=== PATIENT | male | born 1990 | race Caucasian/White ===

== ENCOUNTER 2016-08-10 20:13 | Emergency (ER) | payer MEDICAID ==
[~2016-08-10] VITALS: Ht 180.3 cm; Wt 72.6 kg
[~2016-08-10 20:13] MED LIST: LISD20CA
[2016-08-10 21:02] LABS: Basophils # (auto) 0.1 uL; Basophils % (auto) 1.2 % (0.0-2.0); Eosinophils # (auto) 0.3 uL; Eosinophils % (auto) 2.2 % (0.0-7.0); Hematocrit 48.2 % (41.0-53.0); Hemoglobin 15.9 g/dL (13.5-17.5); Lymphocytes # (auto) 3.4 uL; Lymphocytes % (auto) 29.6 % (10.0-50.0); Mean Corpuscular Hemoglobin 29.3 pg (28.0-32.0); Mean Corpuscular Volume 88.8 fL (80.0-100.0); Mean Platelet Volume 7.6 fL (7.4-10.4); Monocytes # (auto) 0.6 uL; Monocytes % (auto) 5.5 % (0.0-12.0); Neutrophils # (auto) 7.1 uL; Neutrophils % (auto) 61.5 % (37.0-80.0); Platelet Count (auto) 287 10^3/uL (140-450); Red Cell Distribution Width 12.7 % (11.6-16.0); White Blood Cell 11.6 10^3/uL (4.4-10.8)
[2016-08-10 21:52] LABS: BUN/Creatinine Ratio 11.2; Calcium 8.5 mg/dL (8.5-10.1); Potassium 3.5 mmol/L (3.5-5.1)
[2016-08-10 21:55] LABS: Bilirubin, Total 0.2 mg/dL (0.2-1.0); Total Protein 7.6 g/dL (6.4-8.2)
[2016-08-11] MEDS ORDERED: KETOROLAC TROMETH 30 MG/ML 1ML VIAL IV ONE (07:30)
[2016-08-11 07:46] VITALS: BP 109/64
== END 2016-08-11 08:45 | disposition home or self-care (01) ==
LOC: EDBD 20:13 → ER 20:16
DX: R07.89 Other chest pain (principal); F17.210 Nicotine dependence, cigarettes, uncomplicated; F12.10 Cannabis abuse, uncomplicated
CPT/HCPCS: 36415; 71020; 80053; 84484; 85025; 93005; 94761; 96374; 99285; J1885

== ENCOUNTER 2016-11-16 12:00 | Emergency (ER) | payer MEDICAID ==
[~2016-11-16] VITALS: Ht 175.3 cm; Wt 66.2 kg
[2016-11-16] MEDS ORDERED: ASPirin 81 mg TAB PO ONE (12:30)
[2016-11-16 13:02] LABS: Basophils # (auto) 0 uL; Basophils % (auto) 0.4 % (0.0-2.0); Eosinophils # (auto) 0 uL; Eosinophils % (auto) 0.6 % (0.0-7.0); Hemoglobin 16.3 g/dL (13.5-17.5); Lymphocytes # (auto) 1.7 uL; Lymphocytes % (auto) 23.7 % (10.0-50.0); Mean Corpuscular Hgb Conc. 34.6 g/dL (32.0-36.0); Mean Corpuscular Volume 86.7 fL (80.0-100.0); Mean Platelet Volume 7.3 fL (7.4-10.4); Monocytes # (auto) 0.6 uL; Monocytes % (auto) 8.8 % (0.0-12.0); Neutrophils # (auto) 4.7 uL; Neutrophils % (auto) 66.5 % (37.0-80.0); Platelet Count (auto) 354 10^3/uL (140-450); Red Cell Distribution Width 13.1 % (11.6-16.0); White Blood Cell 7.1 10^3/uL (4.4-10.8)
[2016-11-16 13:12] LABS: Albumin 3.8 g/dL (3.4-5.0); Alkaline Phosphatase 100 U/L (45-117); Anion Gap 6 (5-15); Aspartate Aminotransferase 16 U/L (15-37); Bilirubin, Total 0.4 mg/dL (0.2-1.0); Blood Urea Nitrogen 7 mg/dL (7-18); Calcium 8.9 mg/dL (8.5-10.1); Carbon Dioxide 29 mmol/L (21-32); Chloride 104 mmol/L (98-107); GFR African American 139 mL/min; GFR Non-African American 115 mL/min; Glucose 92 mg/dL (74-106); Magnesium 2.5 mg/dL (1.6-2.6); Potassium 3.9 mmol/L (3.5-5.1); Sodium 139 mmol/L (136-145)
[2016-11-16 13:19] LABS: Urine Bilirubin Negative (Negative); Urine Blood TRACE /uL (Negative); Urine Color Yellow (Yellow); Urine Glucose Normal (Normal); Urine Ketone Negative (Negative); Urine Nitrite Negative (Negative); Urine RBC 5 /hpf (0 - 3); Urine Urobilinogen Normal (Negative)
[2016-11-16 14:19] VITALS: BP 124/72
== END 2016-11-16 12:35 | disposition home or self-care (01) ==
LOC: ER 12:00
DX: R07.89 Other chest pain (principal); F17.210 Nicotine dependence, cigarettes, uncomplicated; F12.10 Cannabis abuse, uncomplicated
CPT/HCPCS: 36415; 71010; 80053; 81001; 83735; 84484; 85025; 94761

== ENCOUNTER 2018-04-10 15:33 | Emergency (ER) | payer MEDICAID ==
[~2018-04-10] VITALS: Ht 175.3 cm; Wt 55.8 kg
[2018-04-10 15:50] VITALS: BP 109/63
[2018-04-10 16:58] LABS: Amphetamine Screen, Urine POSITIVE (NEGATIVE); Barbiturate Scree,Urine NEGATIVE (NEGATIVE); Cannabinoid Screen, Urine POSITIVE (NEGATIVE)
[2018-04-10 17:05] LABS: Alcohol, Urine < 3.0 mg/dL (0-5); Benzodiazephine Screen, Urine NEGATIVE (NEGATIVE); Cocaine Screen, Urine NEGATIVE (NEGATIVE); Opiate Scree,Urine NEGATIVE (NEGATIVE); Phencyclidine Screen, Urine NEGATIVE (NEGATIVE)
[2018-04-10] MEDS ORDERED: cefTRIAXone SOD 1,000 MG VL IM ONE (17:15)
== END 2018-04-10 17:35 | disposition home or self-care (01) ==
LOC: ER 15:38
DX: L98.8 Other specified disorders of the skin and subcutaneous tissue (principal); F17.210 Nicotine dependence, cigarettes, uncomplicated
CPT/HCPCS: 80307; 96372; 99283; J0696

== ENCOUNTER 2018-04-18 15:45 | Emergency (ER) | payer MEDICAID ==
[~2018-04-18] VITALS: Ht 167.6 cm; Wt 68.0 kg
[2018-04-18 16:16] VITALS: BP 134/80
[2018-04-18 16:54] LABS: Basophils # (auto) 0.1 uL; Basophils % (auto) 0.6 % (0.0-2.0); Eosinophils # (auto) 0.1 uL; Eosinophils % (auto) 0.5 % (0.0-7.0); Hematocrit 44.6 % (41.0-53.0); Lymphocytes # (auto) 1.9 uL; Lymphocytes % (auto) 15.6 % (10.0-50.0); Mean Corpuscular Hemoglobin 29.9 pg (28.0-32.0); Mean Corpuscular Hgb Conc. 33.5 g/dL (32.0-36.0); Monocytes # (auto) 0.6 uL; Monocytes % (auto) 4.8 % (0.0-12.0); Neutrophils # (auto) 9.3 uL; Neutrophils % (auto) 78.5 % (37.0-80.0); Nucleated Red Blood Cells % 0.1 %; Platelet Count (auto) 309 10^3/uL (140-450); Red Blood Cells 5.01 10^6/uL (4.5-5.90); Red Cell Distribution Width 12.9 % (11.8-14.3); White Blood Cell 11.9 10^3/uL (4.4-10.8)
[2018-04-18] MEDS ORDERED: SODIUM CHLORIDE 0.9% 1,000 ML IV ONE (17:15)
[2018-04-18 17:20] LABS: Alanine Aminotransferase 31 U/L (16-61); Albumin 3.7 g/dL (3.4-5.0); Anion Gap 7 (5-15); Aspartate Aminotransferase 27 U/L (15-37); BUN/Creatinine Ratio 8.9; Blood Urea Nitrogen 10 mg/dL (7-18); Calcium 8.2 mg/dL (8.5-10.1); Carbon Dioxide 25 mmol/L (21-32); Chloride 108 mmol/L (98-107); GFR African American 102 mL/min; GFR Non-African American 84 mL/min; Glucose 93 mg/dL (74-106); Magnesium 2.3 mg/dL (1.6-2.6); Potassium 4.1 mmol/L (3.5-5.1); Sodium 140 mmol/L (136-145)
[2018-04-18 17:26] LABS: Alkaline Phosphatase 90 U/L (45-117); Bilirubin, Total 0.4 mg/dL (0.2-1.0); Total Protein 7.7 g/dL (6.4-8.2)
== END 2018-04-18 17:25 | disposition left against medical advice (07) ==
LOC: EDBD 15:45 → ER 15:45
DX: F41.9 Anxiety disorder, unspecified (principal); F15.10 Other stimulant abuse, uncomplicated; F17.210 Nicotine dependence, cigarettes, uncomplicated; F12.10 Cannabis abuse, uncomplicated
CPT/HCPCS: 36415; 71045; 80053; 83735; 84484; 85025; 93005

== ENCOUNTER 2018-05-20 17:10 | Emergency (ER) | payer MEDICAID ==
[~2018-05-20] VITALS: Ht 177.8 cm; Wt 68.0 kg
[2018-05-20 17:37] VITALS: BP 155/90
[2018-05-20 18:10] LABS: Basophils # (auto) 0 uL; Basophils % (auto) 0.5 % (0.0-2.0); Eosinophils # (auto) 0.1 uL; Eosinophils % (auto) 0.9 % (0.0-7.0); Hematocrit 44.9 % (41.0-53.0); Hemoglobin 15.3 g/dL (13.5-17.5); Lymphocytes # (auto) 2.1 uL; Lymphocytes % (auto) 21.9 % (10.0-50.0); Mean Corpuscular Hemoglobin 30.2 pg (28.0-32.0); Mean Corpuscular Hgb Conc. 34.1 g/dL (32.0-36.0); Mean Corpuscular Volume 88.7 fL (80.0-100.0); Monocytes # (auto) 0.9 uL; Monocytes % (auto) 8.9 % (0.0-12.0); Neutrophils # (auto) 6.6 uL; Neutrophils % (auto) 67.8 % (37.0-80.0); Nucleated Red Blood Cells % 0.1 %; Platelet Count (auto) 274 10^3/uL (140-450); Red Blood Cells 5.06 10^6/uL (4.5-5.90); Red Cell Distribution Width 12.9 % (11.8-14.3); White Blood Cell 9.7 10^3/uL (4.4-10.8)
[2018-05-20 18:18] LABS: Albumin 3.8 g/dL (3.4-5.0); Anion Gap 7 (5-15); BUN/Creatinine Ratio 13.5; Blood Urea Nitrogen 12 mg/dL (7-18); Calcium 8.7 mg/dL (8.5-10.1); Carbon Dioxide 26 mmol/L (21-32); Chloride 104 mmol/L (98-107); GFR African American 133 mL/min; GFR Non-African American 110 mL/min; Glucose 87 mg/dL (74-106); Potassium 3.7 mmol/L (3.5-5.1); Sodium 137 mmol/L (136-145)
[2018-05-20 18:23] LABS: Alanine Aminotransferase 24 U/L (16-61); Alkaline Phosphatase 102 U/L (45-117); Aspartate Aminotransferase 25 U/L (15-37); Bilirubin, Total 0.7 mg/dL (0.2-1.0); Total Protein 7.8 g/dL (6.4-8.2)
== END 2018-05-20 21:51 | disposition left against medical advice (07) ==
LOC: EDBD 17:10 → ER 17:10
DX: R07.2 Precordial pain (principal); F17.210 Nicotine dependence, cigarettes, uncomplicated; F12.10 Cannabis abuse, uncomplicated; F15.10 Other stimulant abuse, uncomplicated; Z53.29 Procedure and treatment not carried out because of patient's decision for other reasons
CPT/HCPCS: 36415; 71045; 80053; 83880; 84484; 85025; 93005; 94761; 99285; J7030

== ENCOUNTER 2018-12-06 20:15 | Emergency (ER) | payer MEDICAID ==
[~2018-12-06] VITALS: Ht 177.8 cm; Wt 63.5 kg
[2018-12-06 20:25] VITALS: BP 133/87
== END 2018-12-06 20:40 | disposition home or self-care (01) ==
LOC: EDUNIT# 20:15 → EDBD 20:15 → ER 20:20
DX: F45.8 Other somatoform disorders (principal); F17.210 Nicotine dependence, cigarettes, uncomplicated; F12.10 Cannabis abuse, uncomplicated; F15.10 Other stimulant abuse, uncomplicated

== ENCOUNTER 2019-03-13 16:57 | Emergency (ER) | payer MEDICAID ==
[~2019-03-13] VITALS: Ht 167.6 cm; Wt 72.6 kg
[2019-03-13 17:00] VITALS: BP 118/73
[2019-03-13 19:32] LABS: Basophils # (auto) 0.1 uL; Basophils % (auto) 0.9 % (0.0-2.0); Eosinophils # (auto) 0.1 uL; Eosinophils % (auto) 1.1 % (0.0-7.0); Hematocrit 44.2 % (41.0-53.0); Lymphocytes # (auto) 2.5 uL; Mean Corpuscular Hemoglobin 30.1 pg (28.0-32.0); Mean Corpuscular Hgb Conc. 33.9 g/dL (32.0-36.0); Mean Corpuscular Volume 88.8 fL (80.0-100.0); Monocytes # (auto) 1.1 uL; Monocytes % (auto) 8.4 % (0.0-12.0); Neutrophils # (auto) 9.3 uL; Neutrophils % (auto) 70.6 % (37.0-80.0); Platelet Count (auto) 318 10^3/uL (140-450); Red Blood Cells 4.98 10^6/uL (4.5-5.90); Red Cell Distribution Width 13.5 % (11.8-14.3); White Blood Cell 13.2 10^3/uL (4.4-10.8)
[2019-03-13 19:53] LABS: Albumin 3.7 g/dL (3.4-5.0); Potassium 3.8 mmol/L (3.5-5.1)
[2019-03-13 19:55] LABS: Bilirubin, Total 0.3 mg/dL (0.2-1.0); Total Protein 8.2 g/dL (6.4-8.2)
== END 2019-03-13 21:47 | disposition left against medical advice (07) ==
LOC: EDBD 16:57 → ER 17:05
DX: Z48.01 Encounter for change or removal of surgical wound dressing (principal); Z53.21 Procedure and treatment not carried out due to patient leaving prior to being seen by health care provider
CPT/HCPCS: 36415; 80053; 85025

== ENCOUNTER 2019-04-04 06:33 | Emergency (ER) | payer MEDICAID ==
[~2019-04-04] VITALS: Ht 175.3 cm; Wt 63.5 kg
[2019-04-04] MEDS ORDERED: LORazepam 2MG/ML-1ML VIAL ONE (06:45)
[2019-04-04] MEDS ORDERED: LORazepam 2MG/ML-1ML VIAL IV ONE (07:00)
[2019-04-04 07:15] LABS: Basophils # (auto) 0.1 uL; Eosinophils # (auto) 0.1 uL; Eosinophils % (auto) 1.4 % (0.0-7.0); Hematocrit 44.5 % (41.0-53.0); Hemoglobin 15.4 g/dL (13.5-17.5); Lymphocytes # (auto) 1.5 uL; Lymphocytes % (auto) 22.3 % (10.0-50.0); Mean Corpuscular Hemoglobin 30.2 pg (28.0-32.0); Mean Corpuscular Hgb Conc. 34.5 g/dL (32.0-36.0); Mean Corpuscular Volume 87.5 fL (80.0-100.0); Monocytes # (auto) 0.6 uL; Neutrophils # (auto) 4.3 uL; Neutrophils % (auto) 66.3 % (37.0-80.0); Nucleated Red Blood Cells % 0.1 %; Platelet Count (auto) 259 10^3/uL (140-450); Red Blood Cells 5.08 10^6/uL (4.5-5.90); Red Cell Distribution Width 13.3 % (11.8-14.3); White Blood Cell 6.5 10^3/uL (4.4-10.8)
[2019-04-04] MEDS ORDERED: SODIUM CHLORIDE 0.9% 1,000 ML IV ONE (07:30)
[2019-04-04 07:33] LABS: Alanine Aminotransferase 23 U/L (16-61); Albumin 3.6 g/dL (3.4-5.0); Anion Gap 7 (5-15); Aspartate Aminotransferase 24 U/L (15-37); BUN/Creatinine Ratio 6.9; Blood Alcohol < 3.0 mg/dL (0-5); Blood Urea Nitrogen 6 mg/dL (7-18); Calcium 8.3 mg/dL (8.5-10.1); Carbon Dioxide 26 mmol/L (21-32); Chloride 104 mmol/L (98-107); GFR African American 135 mL/min; GFR Non-African American 112 mL/min; Glucose 95 mg/dL (74-106); Potassium 3.6 mmol/L (3.5-5.1); Sodium 137 mmol/L (136-145)
[2019-04-04 07:38] LABS: Alkaline Phosphatase 104 U/L (45-117); Bilirubin, Total 0.4 mg/dL (0.2-1.0); Total Protein 7.8 g/dL (6.4-8.2)
[2019-04-04 07:43] LABS: Acetaminophen < 2.0 ug/mL (10-30)
[2019-04-04 09:10] VITALS: BP 148/119
[2019-04-04 10:09] LABS: Alcohol, Urine < 3.0 mg/dL (0-5); Amphetamine Screen, Urine POSITIVE (NEGATIVE); Barbiturate Scree,Urine NEGATIVE (NEGATIVE); Benzodiazephine Screen, Urine NEGATIVE (NEGATIVE); Cannabinoid Screen, Urine POSITIVE (NEGATIVE); Cocaine Screen, Urine NEGATIVE (NEGATIVE); Opiate Scree,Urine NEGATIVE (NEGATIVE); Phencyclidine Screen, Urine NEGATIVE (NEGATIVE)
== END 2019-04-04 09:35 | disposition home or self-care (01) ==
LOC: ER 06:36
DX: G40.409 Other generalized epilepsy and epileptic syndromes, not intractable, without status epilepticus (principal); F41.9 Anxiety disorder, unspecified; E86.0 Dehydration; F17.210 Nicotine dependence, cigarettes, uncomplicated; F12.90 Cannabis use, unspecified, uncomplicated; F15.90 Other stimulant use, unspecified, uncomplicated; R07.9 Chest pain, unspecified
CPT/HCPCS: 36415; 70450; 71045; 80053; 80307; 80320; 80329; 84484; 85025; 96361; 96374; 99284; J2060; J7030

== ENCOUNTER 2019-05-06 13:22 | Inpatient (IN) | payer MEDICAID ==
[~2019-05-06] VITALS: Ht 175.3 cm; Wt 65.0 kg
[2019-05-06 14:21] LABS: Basophils # (auto) 0.1 uL; Basophils % (auto) 0.3 % (0.0-2.0); Eosinophils # (auto) 0.1 uL; Eosinophils % (auto) 0.3 % (0.0-7.0); Hemoglobin 15.3 g/dL (13.5-17.5); Lymphocytes # (auto) 2.1 uL; Lymphocytes % (auto) 9.3 % (10.0-50.0); Mean Corpuscular Hemoglobin 29.3 pg (28.0-32.0); Mean Corpuscular Hgb Conc. 33.2 g/dL (32.0-36.0); Mean Corpuscular Volume 88.3 fL (80.0-100.0); Monocytes # (auto) 1.4 uL; Monocytes % (auto) 6.2 % (0.0-12.0); Neutrophils # (auto) 19.2 uL; Neutrophils % (auto) 83.9 % (37.0-80.0); Nucleated Red Blood Cells % 0.1 %; Platelet Count (auto) 320 10^3/uL (140-450); Red Blood Cells 5.22 10^6/uL (4.5-5.90); Red Cell Distribution Width 13.3 % (11.8-14.3); White Blood Cell 22.9 10^3/uL (4.4-10.8)
[2019-05-06 14:34] LABS: Calcium 8.6 mg/dL (8.5-10.1)
[2019-05-06 14:37] LABS: Bilirubin, Total 0.8 mg/dL (0.2-1.0); Total Protein 7.7 g/dL (6.4-8.2)
[2019-05-06] MEDS ORDERED: SODIUM CHLORIDE 0.9% 1,000 ML IV ONE (15:14)
[2019-05-06] MEDS ORDERED: VANCOMYCIN 1GM/250ML 250 ML IV ONE (15:15)
[2019-05-06] MEDS ORDERED: KETOROLAC TROMETH 30 MG/ML 1ML VIAL IV ONE (15:15)
[2019-05-06] MEDS ORDERED: cefTRIAXone 1GM/50ML D5W 50 ML IV ONE (15:15)
[2019-05-06] MEDS ORDERED: IOHEXOL 300 MG/ML 100ML BOTTLE IJ ONE (16:32)
[2019-05-06] MEDS ORDERED: SODIUM CHLORIDE 0.9% 1,000 ML IV SCH (18:36)
[2019-05-06] MEDS ORDERED: TEMAZEPAM 15 MG CAP PO PRN (18:45)
[2019-05-06] MEDS ORDERED: traMADol HCL 50 MG TAB PO PRN (18:45)
[2019-05-06] MEDS ORDERED: KETOROLAC TROMETH 30 MG/ML 1ML VIAL IV PRN (18:45)
[2019-05-06] MEDS ORDERED: DEXTROSE (50%) 50ML SYRG IV PRN (18:45)
[2019-05-06] MEDS ORDERED: PROMETHAZINE HCL 25 MG/ML 1ML IV PRN (18:45)
[2019-05-06] MEDS ORDERED: NITROGLYCERIN 0.4 MG SL TAB SL PRN (18:45)
[2019-05-06] MEDS ORDERED: MORPHINE SULF INJ 2 MG/ML SYRINGE 1ML IV PRN (18:45)
[2019-05-06] MEDS ORDERED: PIPERACILLIN-TAZOB 3.375GM 100 ML IV ONE (18:45)
[2019-05-06] MEDS ORDERED: ACETAMINOPHEN 500 MG TAB PO PRN (18:45)
[2019-05-06] MEDS ORDERED: LACTULOSE 20Gm/30ML SOLN PO PRN (18:45)
[2019-05-06] MEDS ORDERED: VANCOMYCIN PER PHARMACY 0 MG IV SCH (18:45)
[2019-05-06 19:03] LABS: Urine Bacteria NONE SEEN /hpf (None Seen); Urine Blood Negative /uL (Negative); Urine Specific Gravity 1.043 (1.001-1.035); Urine WBC 1 /hpf (0 - 3)
--- NOTE | 2019-05-06 20:15 | NUR ---
Telemetry admit from [facility] Bernstein admitted to Telemetry unit after SBAR received. Patient oriented to ALEKSANDER JANE, RN primary RN, unit, room 86 bed B and unit policies regarding patient care and visiting hours. Patient now on continuous telemetry monitoring, tele box # 68 and telemetry reading on arrival to unit is Sinus Tachycardia 113. Weighed by bed scale and encouraged to call if they need something. All questions and concerns addressed, patient verbalized understanding. Note: Patient received alert and oriented to person, place, time and situation. Left upper extremity noted with redness and swelling; no drainage. Patient denies pain and discomfort. Patient requested that his significant other stay over night at his bedside because the both of them were homeless and the area they lived in was not safe for his significant other to stay alone. Patient and significant other informed that visiting hours were over at 2030 and his significant other would be able to stay in the Hospital's lobby until the morning. Patient verbalized understanding, but did not agree. Patient's IV to right AC connected to IVFs. Bed in low position and call light in reach.
[2019-05-06] MEDS ORDERED: INFLUENZA QUAD 2019-2020 0.5ml SYRG IM ONE (21:15)
[2019-05-06] MEDS ORDERED: DIVA250T51 PO (21:17)
--- NOTE | 2019-05-06 21:30 | NUR ---
Patient up and ambulating in corridors. Patient headed outside to smoke a cigarette with his girlfriend.
[2019-05-06 22:00] VITALS: BP 116/64
[2019-05-06] MEDS ORDERED: ACCU-CHEK COMFORT CURVE STRIP VI SCH (22:00)
[2019-05-06] MEDS ORDERED: InsuLIN REG 1unit/0.01ml Soln (100units/ml) SC SCH (22:00)
[2019-05-06] MEDS ORDERED: FAMOTIDINE 20 MG TAB PO SCH (22:00)
--- NOTE | 2019-05-06 23:05 | NUR ---
Patient in his room with girlfriend at bedside. Patient states he decided to leave hospital against medical advice because his girlfriend has panic attacks when he is not around. Patient given information about the importance of treatment for his condition and to return to ED if condition worsens. Patient verbalized understanding, but insisted on leaving for his girlfriend's well-being. 20 gauge IV discontinued to right upper arm; canula intact. Patient denies pain at this time. He stated he had oral antibiotics at his mom's house and plans to use the antibiotics. Patient left unit accompanied by his girlfriend.
[2019-05-07] MEDS ORDERED: PIPERACILLIN-TAZOB 3.375GM 100 ML IV SCH
[2019-05-07] MEDS ORDERED: VANCOMYCIN 1GM/250ML 250 ML IV SCH
[2019-05-07] MEDS ORDERED: ENOXAPARIN SOD 40 MG/0.4 ML SYRINGE SC SCH (10:00)
== END 2019-05-06 23:34 | disposition left against medical advice (07) | DRG 383 ==
LOC: EDBD 13:22 → ER 13:22 → TELE 13:23 → TELE-WESTW 20:21
PROVIDERS: ADMIT Internal Medicine; ATTEND Internal Medicine
DX: L03.114 Cellulitis of left upper limb (principal); D72.829 Elevated white blood cell count, unspecified; E11.9 Type 2 diabetes mellitus without complications; F15.90 Other stimulant use, unspecified, uncomplicated; F17.210 Nicotine dependence, cigarettes, uncomplicated; I34.1 Nonrheumatic mitral (valve) prolapse; Z53.29 Procedure and treatment not carried out because of patient's decision for other reasons; Z59.0 Homelessness; Z83.3 Family history of diabetes mellitus
CPT/HCPCS: 36415; 73201; 80053; 81001; 83036; 83605; 85025; 85652; 87040; 94761; 96361; 96365; 96367; 96375; G0378; J0696; J1885

== ENCOUNTER 2019-08-29 20:24 | Inpatient (IN) | payer MEDICAID ==
[~2019-08-29] VITALS: Ht 172.7 cm; Wt 65.0 kg
[~2019-08-29 20:24] MED LIST changes: +DIVA250T51 PO
[2019-08-29 21:49] LABS: Basophils # (auto) 0.1 uL; Basophils % (auto) 0.4 % (0.0-2.0); Eosinophils # (auto) 0.1 uL; Eosinophils % (auto) 0.6 % (0.0-7.0); Hematocrit 40.8 % (41.0-53.0); Hemoglobin 13.6 g/dL (13.5-17.5); Lymphocytes # (auto) 2.9 uL; Lymphocytes % (auto) 17.2 % (10.0-50.0); Mean Corpuscular Hemoglobin 28.5 pg (28.0-32.0); Mean Corpuscular Hgb Conc. 33.5 g/dL (32.0-36.0); Mean Corpuscular Volume 85.2 fL (80.0-100.0); Monocytes # (auto) 1.2 uL; Monocytes % (auto) 7.2 % (0.0-12.0); Neutrophils # (auto) 12.7 uL; Neutrophils % (auto) 74.6 % (37.0-80.0); Platelet Count (auto) 414 10^3/uL (140-450); Red Blood Cells 4.79 10^6/uL (4.5-5.90); Red Cell Distribution Width 14.1 % (11.8-14.3); White Blood Cell 17.1 10^3/uL (4.4-10.8)
[2019-08-29 22:11] LABS: Albumin 2.9 g/dL (3.4-5.0); Calcium 8.9 mg/dL (8.5-10.1)
[2019-08-29 22:14] LABS: BUN/Creatinine Ratio 8.7; Bilirubin, Total 0.2 mg/dL (0.2-1.0); Total Protein 8.1 g/dL (6.4-8.2)
[2019-08-30] MEDS ORDERED: ONDANSETRON HCL 4 MG/2 ML VIAL IV ONE (01:15)
[2019-08-30] MEDS ORDERED: VANCOMYCIN 1GM/250ML 250 ML IV ONE (01:15)
[2019-08-30] MEDS ORDERED: PIPERACILLIN-TAZOB 3.375GM 100 ML IV ONE (01:15)
[2019-08-30] MEDS ORDERED: SODIUM CHLORIDE 0.9% 1,000 ML IV ONE (01:15)
[2019-08-30] MEDS ORDERED: MORPHINE SULFATE 4 MG/ML SYR/VIAL IV ONE (01:15)
[2019-08-30] MEDS ORDERED: DOCUSATE SOD 100 MG CAP PO PRN (01:45)
[2019-08-30] MEDS ORDERED: HYDROcodone-ACET 5/325MG TAB PO PRN (01:45)
[2019-08-30] MEDS ORDERED: LORazepam 0.5 MG TAB PO PRN (01:45)
[2019-08-30] MEDS ORDERED: ONDANSETRON HCL 4 MG/2 ML VIAL IV PRN (01:45)
[2019-08-30] MEDS ORDERED: ACETAMINOPHEN 325 MG TAB PO PRN (01:45)
[2019-08-30] MEDS ORDERED: VANCOMYCIN PER PHARMACY 0 MG IV SCH (02:00)
[2019-08-30 02:30] VITALS: BP 132/78
[2019-08-30] MEDS: SODIUM CHLORIDE 0.9% 1,000 ML IV SCH ×3 (03:40→21:42)
[2019-08-30] MEDS ORDERED: INFLUENZA QUAD 2019-2020 0.5ml SYRG IM ONE (04:00)
[2019-08-30 05:00] VITALS: BP 115/70
[2019-08-30 06:37] LABS: Amphetamine Screen, Urine POSITIVE (NEGATIVE); Barbiturate Scree,Urine NEGATIVE (NEGATIVE); Benzodiazephine Screen, Urine NEGATIVE (NEGATIVE); Cannabinoid Screen, Urine POSITIVE (NEGATIVE); Cocaine Screen, Urine NEGATIVE (NEGATIVE); Opiate Scree,Urine POSITIVE (NEGATIVE); Phencyclidine Screen, Urine NEGATIVE (NEGATIVE)
[2019-08-30 06:47] LABS: Basophils # (auto) 0.1 uL; Basophils % (auto) 0.3 % (0.0-2.0); Eosinophils # (auto) 0.1 uL; Eosinophils % (auto) 0.5 % (0.0-7.0); Hematocrit 38.9 % (41.0-53.0); Hemoglobin 13.2 g/dL (13.5-17.5); Lymphocytes # (auto) 2.5 uL; Lymphocytes % (auto) 16.4 % (10.0-50.0); Mean Corpuscular Hemoglobin 28.9 pg (28.0-32.0); Mean Corpuscular Hgb Conc. 33.8 g/dL (32.0-36.0); Mean Corpuscular Volume 85.4 fL (80.0-100.0); Monocytes % (auto) 6.7 % (0.0-12.0); Neutrophils # (auto) 11.8 uL; Neutrophils % (auto) 76.1 % (37.0-80.0); Platelet Count (auto) 352 10^3/uL (140-450); Red Blood Cells 4.56 10^6/uL (4.5-5.90); Red Cell Distribution Width 13.8 % (11.8-14.3); White Blood Cell 15.5 10^3/uL (4.4-10.8)
[2019-08-30] MEDS: MORPHINE SULFATE 4 MG/ML SYR/VIAL IV PRN ×3 (07:00→23:07)
[2019-08-30] MEDS: PIPERACILLIN-TAZOB 3.375GM 100 ML IV SCH ×3 (07:00→22:56)
[2019-08-30 07:07] LABS: BUN/Creatinine Ratio 7.7; Calcium 8.1 mg/dL (8.5-10.1); Potassium 3.8 mmol/L (3.5-5.1)
[2019-08-30 08:00] VITALS: BP 113/70
[2019-08-30] MEDS: VANCOMYCIN 1GM/250ML 250 ML IV SCH (16:00)
[2019-08-30 17:00] VITALS: BP 114/69
[2019-08-30 22:25] VITALS: BP 122/75
[2019-08-31] MEDS: VANCOMYCIN 1GM/250ML 250 ML IV SCH ×2 (03:52→17:02)
[2019-08-31 05:16] VITALS: BP 105/59
[2019-08-31] MEDS: PIPERACILLIN-TAZOB 3.375GM 100 ML IV SCH ×3 (05:37→21:42)
[2019-08-31 06:19] LABS: Basophils # (auto) 0.1 uL; Basophils % (auto) 0.5 % (0.0-2.0); Eosinophils # (auto) 0.2 uL; Eosinophils % (auto) 1.2 % (0.0-7.0); Hematocrit 39.5 % (41.0-53.0); Hemoglobin 13.2 g/dL (13.5-17.5); Lymphocytes # (auto) 2.2 uL; Lymphocytes % (auto) 16.4 % (10.0-50.0); Mean Corpuscular Hemoglobin 28.6 pg (28.0-32.0); Mean Corpuscular Hgb Conc. 33.4 g/dL (32.0-36.0); Mean Corpuscular Volume 85.7 fL (80.0-100.0); Monocytes # (auto) 0.7 uL; Neutrophils # (auto) 10.3 uL; Neutrophils % (auto) 76.9 % (37.0-80.0); Platelet Count (auto) 383 10^3/uL (140-450); Red Blood Cells 4.61 10^6/uL (4.5-5.90); Red Cell Distribution Width 14.2 % (11.8-14.3); White Blood Cell 13.4 10^3/uL (4.4-10.8)
[2019-08-31 06:24] LABS: INR 1.04 (0.9-1.15); Partial Thromboplastin Time 34.6 sec (23.64-32.05)
[2019-08-31] MEDS: MORPHINE SULFATE 4 MG/ML SYR/VIAL IV PRN ×3 (06:26→20:27)
[2019-08-31 06:40] LABS: BUN/Creatinine Ratio 7.9; Calcium 8.6 mg/dL (8.5-10.1); Magnesium 2.4 mg/dL (1.6-2.6)
[2019-08-31 09:00] VITALS: BP 121/72
[2019-08-31] MEDS: SODIUM CHLORIDE 0.9% 1,000 ML IV SCH ×2 (09:57→17:02)
[2019-08-31 12:57] VITALS: BP 109/65
[2019-08-31] MEDS ORDERED: ONDANSETRON HCL 4 MG/2 ML VIAL IV PRN (14:15)
[2019-08-31] MEDS ORDERED: MORPHINE SULFATE 4 MG/ML SYR/VIAL IV PRN (14:15)
[2019-08-31] MEDS ORDERED: ACCU-CHEK COMFORT CURVE STRIP VI ONE (14:15)
[2019-08-31] MEDS ORDERED: HYDROmorphone HCL 2 MG/ML VL IV PRN (14:15)
[2019-08-31] MEDS ORDERED: fentaNYL CITRATE 100 MCG/2 ML VL IV PRN (14:15)
[2019-08-31] MEDS ORDERED: KETOROLAC TROMETH 15 mg/ml 1ML VL IV ONE (14:15)
[2019-08-31] MEDS ORDERED: MIDAZOLAM HCL 1MG/1ML-2 ML VIAL ONE (14:19)
[2019-08-31] MEDS ORDERED: fentaNYL CITRATE 100 MCG/2 ML VL ONE (14:19)
[2019-08-31] MEDS ORDERED: PROPOFOL 10 MG/ML 20 ML IV ONE (14:19)
[2019-08-31] MEDS ORDERED: ONDANSETRON HCL 4 MG/2 ML VIAL ONE (14:19)
[2019-08-31] MEDS ORDERED: ceFAZolin 1GM/50ML 50 ML IV ONE (14:40)
[2019-08-31] MEDS ORDERED: KETAMINE HCL 10 ML ONE (15:00)
[2019-08-31 17:00] VITALS: BP 156/79
[2019-08-31 22:00] VITALS: BP 101/57
[2019-09-01] MEDS: MORPHINE SULFATE 4 MG/ML SYR/VIAL IV PRN ×4 (00:38→14:25)
[2019-09-01] MEDS: VANCOMYCIN 1GM/250ML 250 ML IV SCH ×3 (00:38→15:22)
[2019-09-01] MEDS: SODIUM CHLORIDE 0.9% 1,000 ML IV SCH ×2 (04:37→13:26)
[2019-09-01 05:00] VITALS: BP 121/72
[2019-09-01] MEDS: PIPERACILLIN-TAZOB 3.375GM 100 ML IV SCH ×2 (05:48→13:26)
[2019-09-01 08:46] LABS: Hepatitis B Surface Antibody Negative
[2019-09-01 08:59] LABS: Basophils # (auto) 0 uL; Basophils % (auto) 0.3 % (0.0-2.0); Eosinophils # (auto) 0.1 uL; Eosinophils % (auto) 1.4 % (0.0-7.0); Hematocrit 41.9 % (41.0-53.0); Lymphocytes # (auto) 1.9 uL; Lymphocytes % (auto) 21.6 % (10.0-50.0); Mean Corpuscular Hemoglobin 28.7 pg (28.0-32.0); Mean Corpuscular Hgb Conc. 33.4 g/dL (32.0-36.0); Mean Corpuscular Volume 85.7 fL (80.0-100.0); Monocytes # (auto) 0.5 uL; Monocytes % (auto) 5.3 % (0.0-12.0); Neutrophils # (auto) 6.2 uL; Neutrophils % (auto) 71.4 % (37.0-80.0); Platelet Count (auto) 448 10^3/uL (140-450); Red Blood Cells 4.89 10^6/uL (4.5-5.90); Red Cell Distribution Width 14.3 % (11.8-14.3); White Blood Cell 8.7 10^3/uL (4.4-10.8)
[2019-09-01 09:00] VITALS: BP 124/78
[2019-09-01 09:19] LABS: Calcium 8.9 mg/dL (8.5-10.1); Potassium 4.4 mmol/L (3.5-5.1)
[2019-09-01 09:19] LABS: Hepatitis A Total Antibody Negative
[2019-09-01 09:36] LABS: Hepatitis B Core Total AB Negative
[2019-09-01 09:37] LABS: Hepatitis A Ab IgM Negative; Hepatitis B Core IgM Negative; Hepatitis B Surface Antigen Negative (Negative); Hepatitis C Antibody Negative (Negative)
[2019-09-01 13:00] VITALS: BP 118/72
[2019-09-01 17:00] VITALS: BP 123/74
[2019-09-01 17:13] VITALS: BP 107/82
== END 2019-09-01 18:32 | disposition home or self-care (01) | DRG 710 ==
LOC: ER 20:24 → OVERFLOW 20:25 → WEST WING 08-30 02:25
PROVIDERS: ADMIT Hospitalist; ATTEND Internal Medicine
PROC: 0J9D0ZZ Drainage of Right Upper Arm Subcutaneous Tissue and Fascia, Open Approach (ICD-10-PCS; principal; 2019-08-31 14:44)
DX: A41.9 Sepsis, unspecified organism (principal); E11.9 Type 2 diabetes mellitus without complications; F17.210 Nicotine dependence, cigarettes, uncomplicated; F15.10 Other stimulant abuse, uncomplicated; L02.413 Cutaneous abscess of right upper limb; F19.10 Other psychoactive substance abuse, uncomplicated; G40.909 Epilepsy, unspecified, not intractable, without status epilepticus; L03.113 Cellulitis of right upper limb; Z79.899 Other long term (current) drug therapy; Z83.3 Family history of diabetes mellitus; Z59.0 Homelessness; Z71.51 Drug abuse counseling and surveillance of drug abuser
CPT/HCPCS: 36415; 73200; 80048; 80053; 80074; 80202; 80307; 83036; 83735; 84443; 85025; 85610; 85652; 85730; 86141; 86703; 86704; 86706; 86708; 86803; 87040; 87070; 87075; 87205; 87340; 96361; 96365; 96367; 96375; G0378; J0690; J2250; J2405; J2543; J2704

== ENCOUNTER → 2020-03-07 | Emergency (ER) | payer MEDICAID ==
[~2020-03-07] VITALS: Ht 177.8 cm; Wt 72.6 kg
[2020-03-07 04:32] LABS: Basophils # (auto) 0 10 ^3/uL (0-0.2); Basophils % (auto) 0.5 % (0.0-2.0); Eosinophils # (auto) 0.1 10 ^3/uL (0-0.8); Eosinophils % (auto) 0.9 % (0.0-7.0); Hematocrit 43.6 % (41.0-53.0); Lymphocytes # (auto) 1.8 10 ^3/uL (0.4-5.4); Lymphocytes % (auto) 21.7 % (10.0-50.0); Mean Corpuscular Hemoglobin 29.6 pg (28.0-32.0); Mean Corpuscular Hgb Conc. 34.4 g/dL (32.0-36.0); Mean Corpuscular Volume 86.1 fL (80.0-100.0); Monocytes # (auto) 0.6 10 ^3/uL (0-1.3); Monocytes % (auto) 7.4 % (0.0-12.0); Neutrophils # (auto) 5.8 10 ^3/uL (1.6-8.6); Neutrophils % (auto) 69.5 % (37.0-80.0); Nucleated Red Blood Cells % 0.2 %; Platelet Count (auto) 285 10^3/uL (140-450); Red Blood Cells 5.06 10^6/uL (4.5-5.90); Red Cell Distribution Width 14.1 % (11.8-14.3); White Blood Cell 8.4 10^3/uL (4.4-10.8)
[2020-03-07 04:44] LABS: Potassium 3.7 mmol/L (3.5-5.1)
[2020-03-07 04:45] VITALS: BP 143/81
[2020-03-07 04:51] LABS: Albumin 3.7 g/dL (3.4-5.0); BUN/Creatinine Ratio 10.3; Bilirubin, Total 0.4 mg/dL (0.2-1.0); Calcium 8.3 mg/dL (8.5-10.1); Total Protein 7.6 g/dL (6.4-8.2)
[2020-03-07 05:58] LABS: Alcohol, Urine < 3.0 mg/dL (0-10); Amphetamine Screen, Urine POSITIVE (NEGATIVE); Barbiturate Scree,Urine NEGATIVE (NEGATIVE); Benzodiazephine Screen, Urine NEGATIVE (NEGATIVE); Cannabinoid Screen, Urine POSITIVE (NEGATIVE); Cocaine Screen, Urine NEGATIVE (NEGATIVE); Opiate Scree,Urine NEGATIVE (NEGATIVE)
[2020-03-07 06:06] LABS: Phencyclidine Screen, Urine NEGATIVE (NEGATIVE)
== END | disposition home or self-care (01) ==
LOC: EDUNIT# 01:07 → EDBD 01:16 → ER 01:29
DX: R56.9 Unspecified convulsions (principal); F19.10 Other psychoactive substance abuse, uncomplicated
CPT/HCPCS: 36415; 80053; 80307; 85025

== ENCOUNTER 2020-03-31 17:55 | Emergency (ER) | payer MEDICAID ==
[~2020-03-31] VITALS: Ht 177.8 cm; Wt 79.4 kg
[2020-03-31 21:22] VITALS: BP 120/84
[2020-03-31 21:31] LABS: Basophils # (auto) 0.1 10 ^3/uL (0-0.2); Basophils % (auto) 0.5 % (0.0-2.0); Eosinophils # (auto) 0.1 10 ^3/uL (0-0.8); Eosinophils % (auto) 1.1 % (0.0-7.0); Hematocrit 46.5 % (41.0-53.0); Hemoglobin 15.9 g/dL (13.5-17.5); Lymphocytes # (auto) 2.4 10 ^3/uL (0.4-5.4); Lymphocytes % (auto) 21.3 % (10.0-50.0); Mean Corpuscular Hemoglobin 29.7 pg (28.0-32.0); Mean Corpuscular Hgb Conc. 34.3 g/dL (32.0-36.0); Mean Corpuscular Volume 86.8 fL (80.0-100.0); Monocytes # (auto) 0.5 10 ^3/uL (0-1.3); Monocytes % (auto) 4.7 % (0.0-12.0); Neutrophils # (auto) 8.2 10 ^3/uL (1.6-8.6); Neutrophils % (auto) 72.4 % (37.0-80.0); Nucleated Red Blood Cells % 0.1 %; Platelet Count (auto) 322 10^3/uL (140-450); Red Blood Cells 5.37 10^6/uL (4.5-5.90); Red Cell Distribution Width 13.8 % (11.8-14.3); White Blood Cell 11.4 10^3/uL (4.4-10.8)
[2020-03-31 21:43] LABS: Urine Bacteria NONE SEEN /hpf (None Seen); Urine Blood Negative /uL (Negative); Urine Mucus FEW (None Seen); Urine Specific Gravity 1.025 (1.001-1.035); Urine WBC 2 /hpf (0 - 3)
[2020-03-31 21:48] LABS: Albumin 3.8 g/dL (3.4-5.0)
[2020-03-31 21:50] LABS: Alcohol, Urine < 3.0 mg/dL (0-10); Barbiturate Scree,Urine NEGATIVE (NEGATIVE); Cannabinoid Screen, Urine POSITIVE (NEGATIVE); Cocaine Screen, Urine NEGATIVE (NEGATIVE); Opiate Scree,Urine NEGATIVE (NEGATIVE); Phencyclidine Screen, Urine NEGATIVE (NEGATIVE)
[2020-03-31 21:52] LABS: BUN/Creatinine Ratio 10.1; Bilirubin, Total 0.4 mg/dL (0.2-1.0); Total Protein 8.2 g/dL (6.4-8.2)
[2020-03-31 22:07] LABS: Amphetamine Screen, Urine POSITIVE (NEGATIVE); Benzodiazephine Screen, Urine POSITIVE (NEGATIVE)
== END 2020-03-31 21:45 | disposition left against medical advice (07) ==
LOC: ER 17:55 → EDBD 17:55 → ER 21:45
DX: Z53.21 Procedure and treatment not carried out due to patient leaving prior to being seen by health care provider (principal)
CPT/HCPCS: 36415; 80053; 80164; 80307; 81001; 85025

== ENCOUNTER 2020-04-01 10:21 | Emergency (ER) | payer MEDICAID ==
[~2020-04-01] VITALS: Ht 182.9 cm; Wt 63.5 kg
[2020-04-01 12:15] VITALS: BP 119/66
== END 2020-04-01 12:17 ==
LOC: ER 10:21
DX: R07.89 Other chest pain (principal); G40.909 Epilepsy, unspecified, not intractable, without status epilepticus; E11.9 Type 2 diabetes mellitus without complications; F17.210 Nicotine dependence, cigarettes, uncomplicated
CPT/HCPCS: 93005

== ENCOUNTER 2020-12-27 19:41 | Emergency (ER) | payer MEDICAID ==
[~2020-12-27] VITALS: Ht 177.8 cm; Wt 61.2 kg
[2020-12-27] MEDS ORDERED: FAMOTIDINE (10MG/ML) 2ML VL IV ONE (21:00)
[2020-12-27] MEDS ORDERED: LIDOCAINE VISCOUS 2% 15ML UD PO ONE (21:00)
[2020-12-27] MEDS ORDERED: ALUM & MAG HYDROX-SIMETH LIQ(MAALOX) 30 ML PO ONE (21:00)
[2020-12-27 22:40] LABS: Basophils # (auto) 0.1 10 ^3/uL (0-0.2); Basophils % (auto) 0.6 % (0.0-2.0); Eosinophils # (auto) 0.2 10 ^3/uL (0-0.8); Eosinophils % (auto) 2.9 % (0.0-7.0); Hematocrit 42.8 % (41.0-53.0); Hemoglobin 15.1 g/dL (13.5-17.5); Lymphocytes # (auto) 3.7 10 ^3/uL (0.4-5.4); Lymphocytes % (auto) 44.6 % (10.0-50.0); Mean Corpuscular Hemoglobin 30.2 pg (28.0-32.0); Mean Corpuscular Hgb Conc. 35.3 g/dL (32.0-36.0); Mean Corpuscular Volume 85.4 fL (80.0-100.0); Monocytes # (auto) 0.7 10 ^3/uL (0-1.3); Monocytes % (auto) 8.3 % (0.0-12.0); Neutrophils # (auto) 3.6 10 ^3/uL (1.6-8.6); Neutrophils % (auto) 43.6 % (37.0-80.0); Nucleated Red Blood Cells % 0.1 %; Red Blood Cells 5.02 10^6/uL (4.5-5.90); Red Cell Distribution Width 13.1 % (11.8-14.3); White Blood Cell 8.4 10^3/uL (4.4-10.8)
[2020-12-27 23:00] LABS: Albumin 3.2 g/dL (3.4-5.0); Anion Gap 6 (5-15); BUN/Creatinine Ratio 11.6; Blood Urea Nitrogen 10 mg/dL (7-18); Calcium 8.2 mg/dL (8.5-10.1); Carbon Dioxide 28 mmol/L (21-32); Chloride 104 mmol/L (98-107); GFR African American 136 mL/min; GFR Non-African American 113 mL/min; Glucose 90 mg/dL (74-106); Lipase 90 U/L (73-393); Magnesium 2.1 mg/dL (1.6-2.6); Potassium 3.6 mmol/L (3.5-5.1); Sodium 138 mmol/L (136-145)
[2020-12-27 23:10] LABS: Alanine Aminotransferase 25 U/L (16-61); Alkaline Phosphatase 107 U/L (45-117); Aspartate Aminotransferase 15 U/L (15-37); Bilirubin, Total 0.2 mg/dL (0.2-1.0); Total Protein 7.1 g/dL (6.4-8.2)
[2020-12-28 02:22] VITALS: BP 115/67
== END 2020-12-28 02:37 | disposition home or self-care (01) ==
LOC: ER 19:41
DX: R07.89 Other chest pain (principal); K29.00 Acute gastritis without bleeding; F17.210 Nicotine dependence, cigarettes, uncomplicated; F12.10 Cannabis abuse, uncomplicated; F15.10 Other stimulant abuse, uncomplicated; E11.9 Type 2 diabetes mellitus without complications; Z59.0 Homelessness
CPT/HCPCS: 36415; 71045; 80053; 83690; 83735; 84484; 85025; 85049; 93005; 96374; 99285; J3490

== ENCOUNTER 2022-11-22 07:45 | Emergency (ER) | payer MEDICAID ==
[~2022-11-22] VITALS: Ht 177.8 cm; Wt 71.6 kg
[2022-11-22 07:55] VITALS: BP 121/69
[2022-11-22] MEDS ORDERED: KETOROLAC TROMETH 60MG/2ML VIAL IM ONE (08:30)
[2022-11-22] MEDS ORDERED: cefTRIAXone SOD 1,000 MG VL IM ONE (08:45)
[2022-11-22] MEDS ORDERED: NAPR500T31 PO (09:17)
[2022-11-22] MEDS ORDERED: CEPH-510 PO (09:17)
== END 2022-11-22 09:31 | disposition home or self-care (01) ==
LOC: ER 07:45
DX: L04.0 Acute lymphadenitis of face, head and neck (principal); F17.210 Nicotine dependence, cigarettes, uncomplicated; F12.10 Cannabis abuse, uncomplicated; F15.10 Other stimulant abuse, uncomplicated; Z59.00 Homelessness unspecified; Z88.6 Allergy status to analgesic agent
CPT/HCPCS: 76536; 96372; 99285; J0696; J1885

== ENCOUNTER 2024-08-28 18:28 | Emergency (ER) | payer MEDICAID ==
[~2024-08-28] VITALS: Ht 177.8 cm; Wt 78.7 kg
[~2024-08-28 18:28] MED LIST changes: +CEPH-510 PO; -DIVA250T51 PO; -LISD20CA; +NAPR-746 PO
[2024-08-28 18:53] VITALS: BP 129/83; PULSE 99; RESP 18; O2SAT 98
== END 2024-08-28 20:43 | disposition left against medical advice (07) ==
LOC: ER 18:28
DX: S00.80XA Unspecified superficial injury of other part of head, initial encounter (principal); R11.2 Nausea with vomiting, unspecified; R55 Syncope and collapse; Z53.21 Procedure and treatment not carried out due to patient leaving prior to being seen by health care provider; W22.8XXA Striking against or struck by other objects, initial encounter; Y93.89 Activity, other specified; Y92.89 Other specified places as the place of occurrence of the external cause; Y99.8 Other external cause status

== ENCOUNTER 2025-02-25 10:31 | Emergency (ER) | payer MEDICAID ==
[~2025-02-25] VITALS: Ht 177.8 cm; Wt 76.7 kg
[2025-02-25 10:52] VITALS: BP 146/76; PULSE 92; RESP 20; TEMP 98.3; O2SAT 97
[2025-02-25] MEDS ORDERED: BACDST PO (10:52)
[2025-02-25] MEDS ORDERED: IBUP-1456 PO (10:52)
[2025-02-25] MEDS ORDERED: CEPH500C PO (10:52)
--- NOTE | 2025-02-25 10:58 | ED.PDOC ---
History of Present Illness HPI Comments A 34 YEAR OLD MALE PRESENTS TO THE ED WITH COMPLAINT OF INSECT BITE WOUND TO LEFT BUTTOCK. PATIENT STATES THAT HE HAS AN INSECT BITE TO THE MEDIAL ASPECT OF HIS LEFT BUTTOCK. PATIENT STATES THAT THE AREA IS TENDER TO THE TOUCH AND HURTS WHENEVER HE SITS DOWN. PATIENTS LEFT BUTTOCK AREA IS RED IN COLOR AND HARD. NO DRAINAGE NOTED. PATIENT DENIES FEVER, CHILLS, SHORTNESS OF BREATH, CHEST PAIN, ABDOMINAL PAIN, NAUSEA, VOMITING, HEADACHE, OR OTHER COMPLAINTS. NO OTHER SYMPTOMS OR MODIFYING FACTORS AT THIS TIME. PATIENT IS ALERT, ORIENTED X 4, AND HAS STEADY GAIT. Chief Complaint: Wound Check Time Seen by MD: 10:45 Primary Care Provider: ANTHONY Mchugh Notes: Nurses Notes, Medications, Allergies Allergies: Coded Allergies: NO KNOWN ALLERGIES (Unverified , 05/06/19) Home Meds Active Scripts Ibuprofen (Ibuprofen) 800 Mg Tab, 1 TAB PO TID, #30 TAB Prov:LISA DAMON 02/25/25 Cephalexin Monohydrate (Cephalexin) 500 Mg Cap, 1 CAP PO QID, #40 CAP Prov:LISA DAMON 02/25/25 Sulfamethoxazole W/Trimethopri (Bactrim Ds Tablet) 1 Tab Tb, 1 TAB PO BID for 10 Days, #20 TAB Prov:LISA DAMON 02/25/25 Naproxen (Naproxen) 500 Mg Tab, 500 MG PO BID, #24 TAB Prov:LISA DAMON 11/22/22 Cephalexin ( Keflex 500) 500 Mg Cap, 1 CAP PO QID for 10 Days, #40 CAP Prov:LISA DAMON 11/22/22 Information Source: Patient Mode of Arrival: Ambulatory Severity: Moderate Timing: Days Duration: Since onset Prehospital treatment: None Medication Refill: For: Other (LEFT BUTTOCK WOUND RECHECK ) Past Medical History PAST MEDICAL HISTORY: Seizures Surgical History: Denies all surgeries Family History Family History: Reviewed,noncontributory to illness, Family hx of DM, Family hx of heart tanja Social History Smoker: Cigarettes, Less Than 1 Pack/Day Alcohol: Denies ETOH Use, Occasionally Drugs: Denies Drug Use, Marijuana, Methamphetamine Lives In: Home, Homeless Constitutional: denies: chills, diaphoresis, fatigue, fever, malaise, sweats, weakness, others EENTM: denies: blurred vision, double vision, ear bleeding, ear discharge, ear drainage, ear pain, ear ringing, eye pain, eye redness, hearing loss, mouth pain, mouth swelling, nasal discharge, nose bleeding, nose congestion, nose pain, photophobia, tearing, throat pain, throat swelling, voice changes, others Respiratory: denies: cough, hemoptysis, orthopnea, SOB at rest, shortness of breath, SOB with excertion, stridor, wheezing, others Cardiovascular: denies: chest pain, dizzy spells, diaphoresis, Dyspnea on exertion, edema, irregular heart beat, left arm pain, lightheadedness, palpitations, PND, syncope, others Gastrointestinal: denies: abdomen distended, abdominal pain, blood streaked bowels, constipated, diarrhea, dysphagia, difficulty swallowing, hematemesis, melena, nausea, poor appetite, poor fluid intake, rectal bleeding, rectal pain, vomiting, others Genitourinary: denies: burning, dysuria, flank pain, frequency, hematuria, incontinence, penile discharge, penile sore, pain, testicle pain, testicle swelling, urgency, others Neurological: denies: dizziness, fainting, headache, left sided numbness, left sided weakness, numbness, paresthesia, pre-existing deficit, right sided numbness, right sided weakness, seizure, speech problems, tingling, tremors, weakness, others Musculoskeletal: denies: back pain, gout, joint pain, joint swelling, muscle pain, muscle stiffness, neck pain, others Integumetry: reports: lumps (LEFT UPPER BUTTOCK ); denies: bruises, change in color, change in hair/nails, dryness, laceration, lesions, rash, wounds, others Allergic/Immunocompromised: denies: Difficulty Healing, Frequent Infections, Hives, Itching, others Hematologic/Lymphatic: denies: anemia, blood clots, easy bleeding, easy bruising, swollen glands, others Endocrine: denies: excessive hunger, excessive sweating, excessive thirst, excessive urination, flushing, intolerance to cold, intolerance to heat, unexplained weight gain, unexplained weight loss, others Psychiatric: denies: anxiety, bipolar disorder, depression, hopeless, panic disorder, schizophrenia, sleepless, suicidal, others All Other Systems: Reviewed and Negative Physical Exam General Appearance: No Apparent Distress, Normal HEENT: Normal ENT Inspection, PERRL/EOMI, Pharynx Normal, TMs Normal Neck: Full Range of Motion, Non-Tender, Normal, Normal Inspection Respiratory: Chest Non-Tender, Lungs Clear, No Accessory Muscle Use, No Respiratory Distress, Normal Breath Sounds Cardiovascular: No Edema, No JVD, No Murmur, No Gallop, Normal Peripheral Pulses, Regular Rate/Rhythm Breast Exam: Deferred Gastrointestinal: No Organomegaly, Non Tender, No Pulsatile Mass, Normal Bowel Sounds, Soft Genitalia: Deferred Pelvic: Deferred Rectal: Deferred Extremities: No calf tenderness, Normal capillary refill, Normal inspection, Normal range of motion, No pedal edema, Tender (WITH A RED BUMP ON LEFT UPPER INNER BUTTOCK. ) Musculoskeletal : Apperance: Normal Neurologic: Alert, amalgamator II-XII nml as Tested, No Motor Deficits, Normal Affect, Normal Mood, No Sensory Deficits Cerebellar Function: Normal Reflexes: Normal Skin: Dry, Normal Color, Warm, Other (A BUMP WITH LOCALIZED REDNESS, HARDNESS AND TENDERNESS ON LEFT UPPER INNER BUTTOCK, +BITE PRESTON, NO PUS DRAINAGE. ) Peripheral Pulses: 2+ carotid (R), 2+ carotid (L), 2+ dorsalis pedis (R), 2+ do rsalis pedis (L) Lymphatic: No Adenopathy Was a procedure done? Was a procedure done?: No Differential Dx Considerations may include: WOUND RECHECK OF LEFT UPPER BUTTOCK, INSECT BITE WOUND X-Ray, Labs, Meds, VS Vital Signs Date Time Temp Pulse Resp B/P (MAP) Pulse Ox O2 Delivery O2 Flow Rate FiO2 02/25/25 10:52 98.3 92 20 146/76 (99) 97 98.3 02/25/25 10:52 92 20 97 Room Air 02/25/25 10:32 98.3 92 20 146/76 97 98.3 X-Ray, Labs, Meds, VS Comment EXTERNAL MEDICAL RECORDS REVIEWED: [NONE] INDEPENDENT HISTORIANS: [NONE] SOCIAL DETERMINANTS OF HEALTH: [NONE] LABS ORDERED: NONE REVIEWED AND INTERPRETED RESULTS: NONE IMAGING ORDERED: NONE TREATMENTS ORDERED: NO PROCEDURES PERFORMED: NONE CRITICAL CARE TIME: NONE I HAVE DISCUSSED THE PATIENT WITH THE ATTENDING PHYSICIAN, DR. ALEJANDRO BRUNO, AND SHE AGREES WITH THE PATIENT'S PLAN OF CARE AND DISPOSITION. BASED ON HISTORY OF PRESENT ILLNESS, AND PHYSICAL EXAM, PATIENT WILL BE DISCHARGED HOME. DISCUSSED PLAN FOR DISCHARGE HOME WITH RX [SEPTRA DS, KEFLEX AND MOTRIN]. MEDICATION WARNINGS GIVEN. SHARED DECISION MAKING: DISCUSSED WITH PATIENT THAT THEIR WORKUP WAS NORMAL. PATIENT INSTRUCTED TO FOLLOW UP WITH PRIMARY CARE PROVIDER IN 1-2 DAYS FOR RE- EVALUATION OF SYMPTOMS. PATIENT VERBALIZES UNDERSTANDING TO RETURN TO ED FOR NEW OR WORSENING SYMPTOMS OR IF FOLLOW UP WITH PCP CANNOT BE OBTAINED. PATIENT FEELS COMFORTABLE GOING HOME AT THIS TIME. ALL QUESTIONS ADDRESSED AT TIME OF DISCHARGE. Time of 1ST Reevaluation: 11:07 Reevaluation 1ST: Improved Patient Education/Counseling: Diagnosis, Treatment, Need For Follow Up Family Education/Counseling: Diagnosis, Treatment, Need For Follow Up Medical Screening: No EMC Exist At This Time SEPSIS Sepsis Screen Date sepsis recognized/suspect: Feb 25, 2025 Time Sepsis recognized/suspect: 103 Recent Procedure: No On Antibiotic Therapy: No Respiratory Rate >20: No Heart Rate >90: Yes Temp<36 C (96.8 F) or >38.3 C: No SBP <90 or MAP <65 mmHG: No New Acute Mental Status Change: No Is the patient on CPAP, BIPAP,: No Vital Signs Date Time Temp Pulse Resp B/P (MAP) Pulse Ox O2 Delivery O2 Flow Rate FiO2 02/25/25 10:52 98.3 92 20 146/76 (99) 97 98.3 02/25/25 10:52 92 20 97 Room Air 02/25/25 10:32 98.3 92 20 146/76 97 98.3 Departure 1 Departure Time of Disposition: 11:08 Impression: Primary Impression: Insect bite wound Disposition: HOME / SELF CARE / HOMELESS Condition: Stable Additional Instructions: FOLLOW-UP WITH PCP IN 1 TO 2 DAYS. TAKE MEDICATIONS PRESCRIBED. RETURN TO ED FOR ANY NEW OR WORSENING SYMPTOMS. e-Prescriptions Ibuprofen (Ibuprofen) 800 Mg Tab 1 TAB PO TID, #30 TAB Prov: LISA DAMON 02/25/25 Cephalexin Monohydrate (Cephalexin) 500 Mg Cap 1 CAP PO QID, #40 CAP Prov: LISA DAMON 02/25/25 Sulfamethoxazole W/Trimethopri (Bactrim Ds Tablet) 1 Tab Tb 1 TAB PO BID for 10 Days, #20 TAB Prov: LISA DAMON 02/25/25 Discharged With: Self Critical Care Note Critical Care Time?: No Stability Stability form required: No Heart Score Heart Score: Heart Score Response (Comments) Value History N/A 0 EKG N/A 0 Age N/A 0 Risk Factors N/A 0 Troponin N/A 0 Total 0 I personally scribed for LISA DAMON ([email or web address]) on 02/25/25 at 10:57. Electronically submitted by Abel Taylor ([email or web address]). LISA DAMON Feb 25, 2025 10:57
== END 2025-02-25 10:58 | disposition home or self-care (01) ==
LOC: ER 10:31
DX: S31.825A Open bite of left buttock, initial encounter (principal); F17.210 Nicotine dependence, cigarettes, uncomplicated; Z59.00 Homelessness unspecified; W57.XXXA Bitten or stung by nonvenomous insect and other nonvenomous arthropods, initial encounter; Y93.89 Activity, other specified; Y92.89 Other specified places as the place of occurrence of the external cause; Y99.8 Other external cause status

== ENCOUNTER 2025-02-26 12:41 | Emergency (ER) | payer MEDICAID ==
[~2025-02-26] VITALS: Ht 177.8 cm; Wt 76.3 kg
[~2025-02-26 12:41] MED LIST changes: +BACDST PO; +CEPH500C PO; +IBUP-1456 PO
[2025-02-26 12:43] VITALS: BP 109/74; PULSE 97; RESP 15; TEMP 98.8; O2SAT 98
== END 2025-02-26 13:00 | disposition left against medical advice (07) ==
LOC: ER 12:41
DX: M79.644 Pain in right finger(s) (principal); Z53.21 Procedure and treatment not carried out due to patient leaving prior to being seen by health care provider

== ENCOUNTER 2025-05-16 14:58 | Emergency (ER) | payer MEDICAID ==
[~2025-05-16] VITALS: Ht 175.3 cm; Wt 79.3 kg
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
--- NOTE | 2025-05-16 15:55 | DVH ---
CLINICAL INDICATION: fall, trauma, pain TECHNIQUE: XY R WRIST 3+ VIEW XRAY Comparison: None FINDINGS/IMPRESSION: : There is no evidence of acute fracture or dislocation. Soft tissues are unremarkable.
[2025-05-16 18:20] VITALS: BP 129/76; PULSE 87; RESP 16; TEMP 98.1; O2SAT 97
== END 2025-05-16 18:47 | disposition home or self-care (01) ==
LOC: ER 14:58
DX: S60.211A Contusion of right wrist, initial encounter (principal); M79.631 Pain in right forearm; M79.89 Other specified soft tissue disorders; F17.210 Nicotine dependence, cigarettes, uncomplicated; X58.XXXA Exposure to other specified factors, initial encounter; Y93.89 Activity, other specified; Y92.89 Other specified places as the place of occurrence of the external cause; Y99.8 Other external cause status
CPT/HCPCS: 29125; 73110